=== PATIENT | female | born 1935 | race Caucasian/White ===

== ENCOUNTER 2016-09-07 11:52 | Day surgery (SDC) | payer MEDICARE, BC ==
[~2016-09-07 11:52] MED LIST: Buffered Lidocaine 1% SYR 3ML* 3 ML/SYR SYRINGE INTRADERM ONE; Dexamethasone IV* 4 MG/ML 1 ML (4 MG) IV SLOW PU ONE
[2016-09-07] MEDS ORDERED: Dexamethasone IV* 4 MG/ML 1 ML (4 MG) ONE (12:52)
[2016-09-07] MEDS ORDERED: Bupivacaine 0.25% SDV* 30 ML ONE ×2 (13:19→14:07)
[2016-09-07] MEDS ORDERED: fentaNYL* 50 MCG/ML 2 ML VIAL (100 MCG VIAL) ONE (13:36)
[2016-09-07] MEDS ORDERED: Midazolam* 1 MG/ML 2 ML VIAL (2 MG) ONE (13:36)
[2016-09-07] MEDS ORDERED: Ondansetron INJ* 2 MG/ML VIAL ONE (13:37)
[2016-09-07] MEDS ORDERED: Propofol* 10 MG/ML 20 ML BTL IV PUSH ONE (13:37)
[2016-09-07 15:40] VITALS: BP 112/52
--- NOTE | 2016-09-08 05:12 | OP ---
DATE OF OPERATION: 09/07/16 - [facility] DATE OF : 33 SURGEON: Genaro Castillo MD BANKING SPECIALIST: IOANA Zamora ANESTHESIOLOGIST: Dr. Miller. ANESTHESIA: Local MAC. PRE-OP DIAGNOSIS: Right carpal tunnel syndrome. POST-OP DIAGNOSIS: Right carpal tunnel syndrome. OPERATIVE PROCEDURE: Right open carpal tunnel release and median nerve exploration. INDICATIONS: Geetha is a patient of mine. She is 81. She had a partial ulnar nerve injury after a very extensive dog bite several months ago. Ultimately, neurolysed and explored the partial ulnar nerve laceration and wrapped the nerve. The sensation has been improving a little bit in the ulnar nerve. She had started to clot before that surgery and she is not clotting anymore. She still has weak intrinsics, but they do fire. Interestingly, she had absolutely no median nerve symptoms after the dog bite. A few weeks after her ulnar nerve neurolysis, she began to develop tingling in the radial 3 digits that has progressed rather rapidly until it is now pretty much there all the time. She has a marked Tinel's right at the volar wrist flexion crease. We talked about the risks and benefits. She elected to proceed with decompressive surgery. ESTIMATED BLOOD LOSS: 5 mL. COMPLICATIONS: None. FINDINGS: An intact median nerve without any signs of damage to the nerve. DESCRIPTION OF PROCEDURE: Geetha was seen in the preoperative holding area and the correct site and side were identified. We came back to the operating room, where the arm was prepped and draped in the usual fashion and a formal time-out was performed. I anesthetized the operative area with 0.25% Marcaine. We exsanguinated the arm with the Esmarch and tourniquet was inflated to 250 mmHg. I made a longitudinal incision over the carpal tunnel. I brought this proximally across the volar wrist flexion crease in Marii-type fashion to a level of about 2 cm proximal to the crease. Dissection was carried down through the skin and subcutaneous tissue. The palmar fascia was released. Full-thickness flaps were raised. Traversing veins were cauterized. Once I had a nice view of the transverse carpal ligament, I went ahead and released it just off the radial border to the hamate with a 15 blade. The release was done from distal to proximal. I carried the release proximally across the wrist with the blade and then the tenotomy scissors were used to decompress the nerve all the way to a level of about 7 to 8 cm proximal to the wrist flexion crease. There was absolutely no compression on the nerve. The nerve was inspected throughout the entirety of its course. There was no sign of any neuromas or lesions. The wound was then irrigated and the skin was closed with some 5-0 nylon suture. The wound was then dressed with Xeroform, 4x4's, sterile Webril, and an Madhu wrap. She was awoken up and taken to the recovery room in stable condition. [id number]/CPS #: [id number] MTDD
== END 2016-09-07 15:31 | disposition home or self-care (01) ==
LOC: OREAST 11:52
PROVIDERS: ATTEND Orthopaedic Surgery Hand Surgery
DX: G56.01 Carpal tunnel syndrome, right upper limb (principal); J45.909 Unspecified asthma, uncomplicated; M19.90 Unspecified osteoarthritis, unspecified site
CPT/HCPCS: J1100; J2250; J2405; J2704; J3010

== ENCOUNTER 2019-07-04 13:28 | Emergency (ER) | payer MEDICARE, OTHER ==
--- OUTSIDE RECORDS SUMMARY | 2019-07-04 13:38 | XMS REPORT | Continuity of Care Document ---
:1935 External Reference #:[id number] Author Name Michell Moyer DO (transmitted by agent of provider Elly Ortega) Address [address] [place] [id number] Care Team Providers Name Role Phone Lew Moseley MD - Gastroenterology Care Team Information Orthotic And Prosthetic Technician Hazel Hardwick MD - Surgery Care Team Information Orthotic And Prosthetic Technician [phone] Gisela Fernández MD - Care Team Information Orthotic And Prosthetic Technician [phone] Dermatology Evelyn Brown M.D. 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 Anxiety state Larry Rene M.D.,FACP Onset: 03/14/2014 Moderate persistent allergic asthma Larry Rene M.D.,FACP Onset: 05/17 Vitamin B12 deficiency (non anemic) Larry Rene M.D.,FACP Onset: 05/09 Lesion of ulnar nerve Genaro Castillo MD Onset: 05/15/2016 Carpal tunnel syndrome of right wrist Genaro Castillo MD Onset: 03/12/2017 Localized, primary osteoarthritis of Genaro Castillo MD Onset: 03/12/2017 the hand H/O: hysterectomy Larry Rene M.D.,FACP Onset: 06/24/2017 Social History Type Date Description Comments Sex Unknown Tobacco Use Start: Unknown Never Smoked Cigarettes ETOH Use 10/19/2017 Rarely consumes wine Recreational Drug Use Denies Drug Use Tobacco Use Start: Unknown Patient has never smoked Smoking Status Reviewed: 07/03/19 Patient has never smoked Allergies, Adverse Reactions, Alerts Active Allergies Reaction Severity Comments Date Penicillin blisters 06/03/2012 Erythromycin mouth blisters 06/03/2012 Bee Sting 03/16/2013 Gauze 06/12/2016 Dipyridamole resp arrest during 10/19/2017 Dip/Myoview Lipitor myalgias 10/25/2017 Morphine 12/07/2017 Bactrim liver count increase 07/13/2018 Medications Active Medications SIG Qnty Indications Ordering Date Provider Doxycycline Hyclate 1 by mouth twice a 10tabs R05 Michell 07/03/2019 day Senner, DO 100mg Tablets Citalopram 1 by mouth every day 90tabs R63.4 Evelyn Brown, 12/13/2018 Hydrobromide MD 20mg Tablets Symbicort inhale two puffs by 30.6gm Larry Larsen 07/27/2018 mouth twice a day Austin, 80-4.5mcg/Act David,FACP Aerosol Atorvastatin Calcium take 1 tablet at 90tabs Larry Larsen 07/13/2018 bedtime Austin, 20mg Tablets David,FACP Triamcinolone apply every day as 80gm Larry Larsen 07/13/2018 Acetonide needed [place], 0.1% Cream David,FACP Shingrix 0.5 milliliters 2units Larry Larsen 05/06/2018 50mcg/0.5ML intramuscular now Austin, Suspension Rec and 2-3 months later David,FACP repeat Xarelto take one tablet by 90tabs Evelyn Brown, 09/02/2017 20mg Tablets mouth every day Vitamin B 12 by mouth every day 100units Larry Larsen 06/24/2017 250mcg Adriana Rene M.D.,FACP Ventolin HFA 2 puffs by mouth 18units Larry Larsen 12/08/2016 four times a day as Edgard 108(90Base) mcg/Act needed David,FACP Aerosol Ranitidine HCL take one tablet by 90tabs K21.9 Evelyn Brown, 11/22/2015 300mg mouth every day Tablets Evista take 1 tablet by 90tabs Evelyn Brown, 06/03/2009 60mg Tablets mouth once daily Betamethasone apply twice a day 45units Paul Gonzalez, 04/04/2009 Valerate sparingly as needed CONCRETER 0.1% Cream Motrin Ib 1-2 twice a day as Unknown 200mg needed Tablets Aspirin 1 by mouth every day Unknown 81mg Tablets DR Medications Administered in Office Medication SIG Qnty Indications Ordering Provider Date Influenza Virus Vaccine, Unknown 05/03/2019 Pandemic Formulation Injection Celestone 3 mg and 3mg Genaro Castillo MD 03/12/2017 Injection B-12 Injection Nurse Visit [facility] 11/26/2016 Injection B-12 Injection Nurse Visit [facility] 10/21/2016 Injection B-12 Injection Nurse Visit [facility] 09/24/2016 Injection B-12 Injection Nurse Visit [facility] 07/13/2016 Injection B-12 Injection Larry Rene, 06/09/2016 Injection David,FACP B-12 Injection Nurse Visit [facility] 05/14/2016 Injection Immunizations CPT Code Status Date Vaccine Lot # [id number] Given 05/24/2018 Fluzone High Dose [id number] 98048 Given 06/24/2017 Influenza Virus Vaccine, Quadrivalent, Split, [id number] Preservative Free 17182 Given 05/14/2016 Influ Virus Vaccine, Quadrivalent, Split Virus, [id number] [place] [address] Given 05/02/2016 Tetanus And Diptheria (Td) For Adult Use Preservative Free 76142 Given 05/17/2015 Influenza Virus Vaccine, Quadrivalent, Split, [id number] Preservative Free 70086 Given 05/17/2015 Pneumococcal Conjugate Vaccine 13 Valent For [id number] Intramuscular Use Q2037 Given 03/14/2014 Fluvirin Im 3Yrs And Older 08402 Given 03/14/2014 Zoster (Zostavax) [id number] 76795 Given 03/14/2014 Influenza Virus Vaccine, Quadrivalent, Split, [id number] Preservative Free 04583 Given 10/05/2013 Tdap - Tetanus/Diptheria/Acellular Pertussis [id number] 66951 Given 04/10/2013 Flu Vaccine Split Virus Preservative Free For [id number] Indiv 3Yr Older Q2037 Given 04/18/2012 Fluvirin Im 3Yrs And Older [id number] Q2038 Given 05/11/2011 Fluzone Vaccine [id number] 73745 Given 11/25/2010 Pneumonia Vaccine [id number] 27132 Given 03/28/2010 Influenza Virus 3Yrs & Over [id number] 73966 Given 05/07/2009 Influenza Virus Vaccine, Pandemic Formulation [id number] 65802 Given 05/07/2009 Administration Swine Flu Shot 56796 Given 04/30/2008 Influenza Virus 3Yrs & Over [id number] Vital Signs Date Vital Result Comment 07/03/2019 4:48pm Height 59 inches 4'11" Weight 132.12 lb Heart Rate 76 /min BP Systolic 112 mmHg BP Diastolic 70 mmHg Body Temperature 97.7 F O2 % BldC Oximetry 97 % BMI (Body Mass Index) 26.7 kg/m2 04/05/2019 3:12pm Height 59 inches 4'11" Weight 129.00 lb Heart Rate 51 /min BP Systolic 120 mmHg BP Diastolic 86 mmHg Body Temperature 97.1 F O2 % BldC Oximetry 94 % BMI (Body Mass Index) 26.1 kg/m2 Results Description No Information Available Procedures Date Code Description Status 07/09/2017 [id number] Mammogram Completed 03/02/2017 [id number] Bone Mineral Density Test Completed 02/27/2015 [id number] Bone Mineral Density Test Completed 08/28/2013 [id number] Mammogram Completed 01/31/2013 [id number] Diabetic Retinal Eye Exam Completed 06/10/2012 [id number] Bone Mineral Density Test Completed 06/10/2012 [id number] Mammogram Completed 06/09/2012 [id number] Diabetic Foot Exam Completed 12/31/2010 [id number] Colonoscopy Completed 06/23/2010 [id number] Mammogram Completed 06/14/2009 917806715 Bone Mineral Density Test Completed 06/14/2009 [id number] Mammogram Completed Medical Devices Description No Information Available Encounters Type Date Location Provider Dx Diagnosis Office Visit 07/03/2019 [facility] Michell Moyer R05 Cough 4:40p Medicine - Suite DO R Office Visit 04/05/2019 [facility] Internal Evelyn Brown MD F33.0 Major depressive 3:00p Medicine - Ccmob disorder, recurrent, mild G31.84 Mild cognitive impairment, so stated Assessments Date Code Description Provider 07/03/2019 R05 Cough Michell Moyer, DO 04/05/2019 F33.0 Major depressive disorder, recurrent, mild Evelyn Brown MD 04/05/2019 G31.84 Mild cognitive impairment, so stated Evelyn Brown MD Plan of Treatment Future Appointment(s):11/28/2019 3:00 pm - Abdirahman Warren M.D. at [facility]07/03/2019 - [facility]ON[facility] Culver CoughNew Medication :Doxycycline Hyclate 100 mg - 1 by mouth twice a day Functional Status Description No Information Available Mental Status Description No Information Available Referrals Refer to Dr Reason for Referral Status Appt Date Jevon Rankin MD patient and daughter concerned with mild short Sent 12/13 term memory lapses, repeating questions, etc. pt lives alone, is independent in all ADLs & IADLs, score 27/30 on MMSE [address] [place] [id number] [phone]
--- NOTE | 2019-07-04 14:32 | ED ---
Shortness of Breath - HPI Summary HPI Summary: 84-year-old female with significant past medical history of asthma presents to the emergency department today with a pneumonia which was diagnosed yesterday by her PCP. For approximately one week patient has been complaining of feelings of fatigue, cough, fever and chills, shortness of breath and went to her primary care physician for evaluation. An x-ray was ordered which showed "questionable pneumonia at the right lower lung that would be expected to be located in the lateral aspect of the right middle lobe." Patient was prescribed doxycycline for outpatient management yesterday however she did not pick this up as pharmacy was closed. Today the patient's primary care physician sent her to the emergency department for further evaluation. Patient is currently resting comfortable in the stretcher in no acute distress. Patient endorses shortness breath, cough, fever and chills but denies abdominal pain, rash, diarrhea, nausea, vomiting, pain with urination. Family history and social history noncontributory. - History of Current Complaint Chief Complaint: EDUpperRespComplaint Time Seen by Provider: 07/04/19 14:32 Hx Obtained From: Patient Onset/Duration: Gradual Onset Timing: Constant Current Severity: Moderate Dyspnea At: Rest Aggravating Factors: Movement Alleviating Factors: Upright Position Associated Signs & Symptoms: Cough (Productive), Fever - Allergy/Home Medications Allergies/Adverse Reactions: Allergies Allergy/AdvReac Type Severity Reaction Status Date / Time erythromycin base Allergy Anaphylatic Verified 07/04/19 13:35 Shock morphine Allergy Anaphylatic Verified 07/04/19 13:35 Shock Penicillins Allergy Anaphylatic Verified 07/04/19 13:35 Shock seafood Allergy Intermediate nausea, Uncoded 08/31/16 14:24 lightheaded Home Medications: Home Medications Betamethasone Valerate 1 applic TOPICAL BID PRN 07/04/19 [History Confirmed 01/14] Calcium/Vitamin D TAB 250/125* [Oscal D TAB 250/125*] 500 mg PO DAILY 07/04/19 [ History Confirmed 07/04/19] Cyanocobalamin TAB* [Vitamin B12 TAB*] 250 mcg PO DAILY 07/04/19 [History Confirmed 07/04/19] Ibuprofen TAB* [Motrin TAB* 400 MG] 225 mg PO BID 07/04/19 [History Confirmed ] Raloxifene (NF) [Evista(NF)] 60 mg PO DAILY 07/04/19 [History Confirmed 07/04/19 ] Rivaroxaban TAB(*) [Xarelto 20 mg] 20 mg PO DAILY 07/04/19 [History Confirmed ] PMH/Surg Hx/FS Hx/Imm Hx Endocrine/Hematology History: Denies: Hx Diabetes, Hx Sickle Cell Disease Cardiovascular History: Reports: Hx Angina - PT HAS NITRO NEEDED, NOT FREQUENTLY 5 YRS AGO LAST PROBLEM, Hx Rheumatic Fever - 1950- Denies: Other Cardiovascular Problems/Disorders Respiratory History: Reports: Hx Asthma - allergic asthma, environmental, Hx Chronic Obstructive Pulmonary Disease (COPD) Denies: Other Respiratory Problems/Disorders GI History: Reports: Hx Gastroesophageal Reflux Disease Denies: Other GI Disorders History: Denies: Other Problems/Disorders Musculoskeletal History: Reports: Hx Arthritis - all over,back, hands, arms, knees, ostoarthritis, Hx Bursitis Denies: Hx Osteoporosis, Other Musculoskeletal History Comment Only: Hx Rheumatoid Arthritis - ARTHRITIS, NOT SURE IF Sensory History: Reports: Hx Cataracts - patricia, Hx Contacts or Glasses - GLASSES, Hx Hearing Aid - new- adjusting to them Opthamlomology History: Reports: Hx Cataracts - patricia, Hx Contacts or Glasses - GLASSES Neurological History: Denies: Other Neuro Impairments/Disorders Psychiatric History: Reports: Hx Anxiety - on meds - Cancer History Hx Chemotherapy: No Hx Radiation Therapy: No - Surgical History Surgery Procedure, Year, and Place: TONSILS - 17 YEARS OLD. hysterectomy 2012. right hand, 06[place]18[place] [facility] [place], [place] Hx Anesthesia Reactions: No Infectious Disease History: No Infectious Disease History: Denies: Traveled Outside the [place] in Last 30 Days - Social History Alcohol Use: Rare Alcohol Amount: 2-3 per year Substance Use Type: Reports: None Smoking Status (MU): Never Smoked Tobacco Review of Systems Positive: Fever, Chills, Fatigue Eyes: Negative ENT: Negative Cardiovascular: Negative Positive: Shortness Of Breath, Cough Gastrointestinal: Negative Genitourinary: Negative Musculoskeletal: Negative Skin: Negative Neurological: Negative Psychological: Normal All Other Systems Reviewed And Are Negative: Yes Physical Exam - Summary Physical Exam Summary: Patient is in no acute distress with no evidence of accessory muscle use or labored breathing. Patient is able to speak in full on broken sentences with ease. There is no evidence of cyanosis. Auscultation reveals diminished lung sounds throughout however there are rales noted in the lung bases. There is e to a changes in the right lung base. Triage Information Reviewed: Yes Vital Signs On Initial Exam: Initial Vitals Temp Pulse Resp BP Pulse Ox 98.2 F 84 14 127/62 98 07/04/19 13:30 07/04/19 13:30 07/04/19 13:30 07/04/19 13:30 07/04/19 13:30 Vital Signs Reviewed: Yes Appearance: Positive: Well-Appearing, No Pain Distress, Well-Nourished Skin: Positive: Warm, Skin Color Reflects Adequate Perfusion Eyes: Positive: EOMI, MEENA ENT: Positive: Hearing grossly normal Respiratory/Lung Sounds: Positive: Breath Sounds Present, Decreased Breath Sounds, Rales, Fatigue. Negative: Unable to speak in full sentences Cardiovascular: Positive: RRR, S1, S2 Abdomen Description: Positive: Nontender, Soft Musculoskeletal: Positive: Strength/ROM Intact Neurological: Positive: Sensory/Motor Intact, Alert, Oriented to Person Place, Time, Normal Gait, Speech Normal Psychiatric: Positive: Normal, Affect/Mood Appropriate AVPU Assessment: Alert Procedures - Sedation Patient Received Moderate/Deep Sedation with Procedure: No Diagnostics - Vital Signs Vital Signs Temp Pulse Resp BP Pulse Ox 07/04/19 13:30 98.2 F 84 14 127/62 98 - Laboratory Result Diagrams: 07/04/19 14:57 07/04/19 14:57 Lab Statement: Any lab studies that have been ordered have been reviewed, and results considered in the medical decision making process. Course/Dx - Course Course Of Treatment: Patient was evaluated in the emergency department today for Right lower lobe pneumonia. Patient seen and examined her vitals are stable and she is afebrile with no evidence of hypoxia. She has no signs of liver breathing and is able to speak in full sentences and in interview. Laboratory studies were ordered which showed. Patient's CURB-65 score is 2, making her low risk for palpitations from pneumonia and suggesting she be treated in the outpatient setting with PCP follow-up. 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 Patient discharged home with close outpatient follow-up by PCP. - Diagnoses Differential Diagnosis/HQI/PQRI: Positive: Asthma, Bronchitis, Pneumonia Provider Diagnoses: Pneumonia Discharge ED - Sign-Out/Discharge Documenting (check all that apply): Patient Departure - Discharge Plan Condition: Stable Disposition: HOME Patient Education Materials: Bacterial Pneumonia (ED) Referrals: Evelyn Brown MD [Primary Care Provider] - 3 Days Additional Instructions: You were seen in the emergency department today for pneumonia. This is a bacterial infection of the lungs and is treated with antibiotics. Please go to your pharmacy and get the prescription for doxycycline your primary care provider prescribed for you and take as directed. Please follow up with your primary care provider in 3 days for further evaluation and management. Please return to the emergency department immediately if you develop any new or worsening symptoms. Take tylenol 650mg every 6 hours as needed for fever. - Billing Disposition and Condition Condition: STABLE Disposition: Home
[2019-07-04] MEDS ORDERED: DOXYcycline CAP(*) 100 MG PO ONE (15:03)
[2019-07-04 15:25] LABS: ABS Eosinophils 0.3 10^3/ul (0-0.6); ABS Lymphocytes 1.4 10^3/ul (1.0-4.8); ABS Monocytes 0.4 10^3/ul (0-0.8); ABS Neutrophils 3.3 10^3/ul (1.5-7.7); Eosinophil % 4.7 %; Hematocrit 32 % (35-47); Hemoglobin 10.5 g/dL (12.0-16.0); Lymphocyte % 25.9 %; Mean Corpuscular HGB Conc 32 g/dL (31-36); Mean Corpuscular Hemoglobin 25 pg (27-31); Mean Corpuscular Volume 79 fL (80-97); Mean Platelet Volume 8.3 fL (7.4-10.4); Platelet Count 289 10^3/uL (150-450); Red Blood Count 4.11 10^6 /uL (3.70-4.87); Red Cell Distribution Width 17 % (10-15); White Blood Count 5.5 10^3/uL (3.5-10.8)
[2019-07-04 15:39] LABS: Albumin 3.6 g/dL (3.2-5.2); Albumin/Globulin Ratio 1.6 (1-3); BUN/Creatinine Ratio 31.9 (8-20); Calcium 8.4 mg/dL (8.6-10.3); EGFR African American 93.2 (>60); Globulin 2.2 g/dL (2-4); Potassium 3.5 mmol/L (3.5-5.0); Total Bilirubin 0.2 mg/dL (0.2-1.0); Total Protein 5.8 g/dL (6.4-8.9)
[2019-07-04 15:41] LABS: Troponin I 0.01 ng/mL (<0.03)
[2019-07-04 16:28] VITALS: BP 125/81
== END 2019-07-04 16:05 | disposition home or self-care (01) ==
LOC: ED 13:28
DX: J18.9 Pneumonia, unspecified organism (principal); J44.9 Chronic obstructive pulmonary disease, unspecified; F41.9 Anxiety disorder, unspecified; Z79.01 Long term (current) use of anticoagulants; Z79.82 Long term (current) use of aspirin; Z88.1 Allergy status to other antibiotic agents; Z88.5 Allergy status to narcotic agent; Z88.0 Allergy status to penicillin; Z91.013 Allergy to seafood
CPT/HCPCS: 36415; 80053; 83605; 84484; 85025; 87040; 99283; A9270-GY